=== PATIENT | male | born 1980 | race Caucasian/White ===

== ENCOUNTER 2017-04-04 19:53 | Emergency (ER) | payer OTHER ==
[2017-04-04 20:02] VITALS: BP 140/68; PULSE 111; RESP 18; TEMP 97.9
--- NOTE | 2017-04-04 20:17 | ED ---
General Adult HPI - General Chief complaint: Neck Pain/Injury Stated complaint: Neck/Shoulder Pain Time Seen by Provider: 04/04/17 20:03 Source: patient Mode of arrival: ambulatory Limitations: no limitations - History of Present Illness Initial comments: Residual male patient presents to emergency department today for evaluation of right upper back pain. Patient states that as a constant, throbbing pain, that does relieve with ibuprofen use. Patient states that the area hurts worse when he uses his right arm. Patient states the area is more painful with palpation. Patient denies any chest pain, shortness of breath, nausea, vomiting, sweats, abdominal pain, headaches, dizziness, or weakness. Patient denies any trauma or injury to the site. Patient states he was wrestling with his children may have been an inciting factor, but states that he didn't have any problems after that. Patient states that he woke up with the pain. Patient denies any fever or chills. - Related Data Home Medications Medication Instructions Recorded Confirmed Linagliptin/Metformin HCl 1 tab PO DAILY 01/21/16 04/04/17 [Jentadueto 2.5 mg-1000 mg Tab] ALPRAZolam [Xanax] 0.5 mg PO HS PRN 04/04/17 04/04/17 Previous Rx's Medication Instructions Recorded Lisinopril-Hctz 20-25 mg 1 tab PO DAILY #30 tab 01/24/16 [Zestoretic 20-25] Acetaminophen-Codeine 300-30mg 1 tab PO Q6H PRN #15 tablet 04/04/17 [Tylenol #3] Cyclobenzaprine [Flexeril] 10 mg PO TID #15 tab 04/04/17 Allergies Allergy/AdvReac Type Severity Reaction Status Date / Time No Known Allergies Allergy Verified 04/04/17 20:02 Review of Systems ROS Statement: Those systems with pertinent positive or pertinent negative responses have been documented in the HPI. ROS Other: All systems not noted in ROS Statement are negative. Past Medical History Past Medical History: Diabetes Mellitus Additional Past Medical History / Comment(s): back pain, morbid obesity, hypertension, obstructive sleep apnea History of Any Multi-Drug Resistant Organisms: None Reported Past Surgical History: Tonsillectomy Past Psychological History: No Psychological Hx Reported Smoking Status: Never smoker Past Alcohol Use History: Occasional Past Drug Use History: None Reported General Exam Limitations: no limitations General appearance: alert, in no apparent distress Eye exam: Present: normal appearance, PERRL, EOMI. Absent: scleral icterus, conjunctival injection, periorbital swelling ENT exam: Present: normal exam, mucous membranes moist Neck exam: Present: normal inspection, full ROM. Absent: tenderness, meningismus, lymphadenopathy Respiratory exam: Present: normal lung sounds bilaterally. Absent: respiratory distress, wheezes, rales, rhonchi, stridor Cardiovascular Exam: Present: regular rate, normal rhythm, normal heart sounds. Absent: systolic murmur, diastolic murmur, rubs, gallop, clicks GI/Abdominal exam: Present: soft, normal bowel sounds. Absent: distended, tenderness, guarding, rebound, rigid Extremities exam: Present: normal inspection, full ROM, normal capillary refill , other (Increased pain to the right posterior shoulder with movement of the arm.). Absent: tenderness, pedal edema, joint swelling, calf tenderness Back exam: Present: normal inspection, tenderness (Over the upper trapezius muscle. HEENT reproducible with palpation.), muscle spasm Neurological exam: Present: alert, oriented X3, CN II-XII intact Psychiatric exam: Present: normal affect, normal mood Skin exam: Present: warm, dry, intact, normal color. Absent: rash Course Vital Signs 04/04/17 19:59 Temperature 97.9 F Pulse Rate 111 H Respiratory 18 Rate Blood Pressure 140/68 O2 Sat by Pulse 95 Oximetry Medical Decision Making - Medical Decision Making 36-year-old male patient comes in with complaints of right upper back pain is both reproducible upon palpation, and with movement of the right arm. Patient has been taking ibuprofen which does help the pain somewhat. Patient denies any injury or trauma. No x-rays are performed at this time. Patient will be discharged with prescription for Flexeril and Tylenol 3 with codeine for pain. Patient also injected to perform gentle stretching exercises and apply warm moist heat to the area. Patient instructed to follow up with his primary care physician in one to 2 days for recheck. Patient started to return for any new, worsening, or concerning symptoms. Patient verbalized understanding and agreed to this plan. Disposition Clinical Impression: Back spasm Disposition: HOME SELF-CARE Condition: Good Instructions: Muscle Spasm (ED) Additional Instructions: Use muscle relaxers and pain medication as needed. Apply warm moist heat to the area. Gentle stretching exercises. If symptoms persist or any other problems to primary care physician a 1-2 days. Return for any new, worsening, or concerning symptoms. Prescriptions: Acetaminophen-Codeine 300-30mg [Tylenol #3] 1 tab PO Q6H PRN #15 tablet PRN Reason: Pain Cyclobenzaprine [Flexeril] 10 mg PO TID #15 tab Referrals: Sumit Graves DO [Primary Care Provider] - 1-2 days Time of Disposition: 20:17
== END 2017-04-04 20:28 | disposition home or self-care (01) ==
LOC: EC 19:53
DX: M62.830 Muscle spasm of back (principal); E11.9 Type 2 diabetes mellitus without complications; E66.1 Drug-induced obesity; Z68.35 Body mass index [BMI] 35.0-35.9, adult; Z79.84 Long term (current) use of oral hypoglycemic drugs
CPT/HCPCS: 99283

== ENCOUNTER → 2017-04-24 | Outpatient (CLI) | payer OTHER ==
--- NOTE | 2017-04-25 07:00 | EST ---
DATE OF SERVICE: 04/24/2017 TYPE OF REPORT: Stress test. INDICATION: Tachycardia. BASELINE HEART RATE: 108 BASELINE BLOOD PRESSURE: 145/99 MAXIMUM HEART RATE: 179 MAXIMUM BLOOD PRESSURE: 203/106 85% MPHR: 156 100% MPHR: 184 METS: 10.1 MAX STAGE REACHED: IV TOTAL EXERCISE TIME: 9:27 The test is being done to evaluate cardiac status because of tachycardia. Baseline EKG showed a sinus rhythm and sinus tachycardia. Blood pressure at rest is 145/99 with pulse rate of 108. Patient walked on the Nav protocol for 9 minutes and 27 seconds achieving a maximum heart rate of 179 with a blood pressure of 203/106. EKGs taken during and after the exercise did not reveal any significant changes from baseline. Patient did not experience any chest pain. FINAL IMPRESSION: 1. Negative stress test. 2. Patient did not experience any chest pain. 3. No arrhythmias were detected. 4. Patient's exercise capacity is fair. [facility]
== END | disposition home or self-care (01) ==
LOC: RADNMMAIN 10:43
PROVIDERS: ATTEND Family Medicine
DX: R00.0 Tachycardia, unspecified (principal)
CPT/HCPCS: 93017

== ENCOUNTER → 2018-04-30 | Outpatient (CLI) | payer OTHER ==
--- NOTE | 2018-04-30 20:50 | CONS ---
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 The concern is that the patient has high blood pressure and he is currently on 3 different blood pressure medications, including a combination of lisinopril, metoprolol and Norvasc. On today's evaluation, his blood pressure is under good control. He has occasional soft snoring; no witnessed apneas. No excessive hypersomnia or sleepiness. Lawson score is only 2. He goes to bed between 10 and 11 p.m., wakes up at 5:30 a.m. in the morning. 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 He does not fall asleep while driving. No restlessness in the lower extremities. No issues with chronic pain. No issues with heartburn, shortness of breath or palpitation at bedtime. Otherwise his comorbidities include diabetes and hypertension. PAST MEDICAL HISTORY: 1. Diabetes. 2. Hypertension. 3. Obesity. PAST SURGICAL HISTORY: Appendectomy. OUTPATIENT MEDICATIONS: 1. Lisinopril. 2. Metoprolol. 3. Trulicity. 4. Amlodipine. 5. Jentadueto. SOCIAL HISTORY: Nonsmoker. No history of alcoholism. No history of IV drugs. The patient has 3 foster kids, 7 weeks, 14 months and 3 years old. 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 FAMILY HISTORY: Negative for sleep apnea. REVIEW OF SYSTEMS: Twelve-point review of systems was done. Positive findings are all mentioned above in the history of present illness. No major hypersomnia or fatigue. He is not worried much about his sleep. No anxiety. No depression. No claustrophobia. No panic attacks. No sexual dysfunction. PHYSICAL EXAMINATION: BP is 125/85, pulse 106, respirations 16, temperature 98.3, saturation 95% on room air. Height is 5 feet 5 inches, weight 223. Lawson score is 2. Neck size 17. BMI 36.9. GENERAL APPEARANCE: Calm, comfortable. Head is atraumatic, normocephalic. NECK: Supple. No JVD. No goiter or neck mass. Mallampati class III. LUNGS: Clear to auscultation. HEART: Heart sounds are regular rate and rhythm. Normal S1, S2. No S3, S4. No murmurs. ABDOMEN: Soft, nontender. No organomegaly. EXTREMITIES: No edema. No cyanosis or clubbing. NEUROLOGIC: Alert and oriented x3. There is no focal neurological deficit. IMPRESSION: 1. Questionable obstructive sleep apnea. Overall suspicion is low. 2. Refractory hypertension, currently on 3 different blood pressure medications. 3. Obesity. 4. Diabetes mellitus. PLAN: 1. Encourage weight loss. 2. The patient overall has good sleep hygiene measures. 3. Proceed with a home sleep study, looking for any significant sleep breathing disorder contributing to this patient's hypertension. MMODL / IJN: [id number] /
== END | disposition home or self-care (01) ==
LOC: SLEEP 14:25
PROVIDERS: ATTEND Internal Medicine Critical Care Medicine
DX: I10 Essential (primary) hypertension (principal); E66.9 Obesity, unspecified; E11.9 Type 2 diabetes mellitus without complications; Z68.36 Body mass index [BMI] 36.0-36.9, adult; Z79.899 Other long term (current) drug therapy
CPT/HCPCS: 99211

== ENCOUNTER → 2020-09-14 | Outpatient (CLI) | payer BC ==
--- NOTE | 2020-09-14 12:48 | CONS ---
MOHIT Jimenez is a 39-year-old male patient who is coming in upon the request of his primary care physician to be evaluated and investigated for obstructive sleep apnea. The patient has some elevated blood pressure and he is on 3 different medications to control the BP. The patient on several occasions was noted to have an elevated blood pressure and this obviously raise the concern for obstructive sleep apnea. Note that the patient was morbidly obese and he was referred to me a couple of years ago for an evaluation and his sleep study was not completed at that point in time. Noted over the years he has lost significant amount of weight. Back in 2000, he used to weigh around 350 pounds and with dieting he has dropped his weight down to 216. He is not sure if he is snoring. He claims that he is not. He is not waking up in the middle of night gasping for air or choking sensation. No excessive hypersomnia or sleepiness. 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 in the morning. He has been sleeping on his side. He does not take any naps during the day. He has not been feeling sleepy while driving, never been involved in a motor vehicle accident because of feeling drowsy or sleepy. No sleep paralysis. No hallucinations. No cataplexy. PAST MEDICAL HISTORY: Diabetes, hypertension, obesity. PAST SURGICAL HISTORY: Past surgical history includes appendectomy. DRUG ALLERGIES: None. OUTPATIENT MEDICATIONS: Outpatient medications include lisinopril, metoprolol, Trulicity, Janumet and amlodipine. SOCIAL HISTORY: Nonsmoker. No history of alcoholism. No history of IV drugs. He drinks coffee in variable amounts depending on the day. FAMILY HISTORY: Brother has hypertension. Grandmother has coronary artery disease and heart problems and grandmother had a stroke. Brother had bronchial asthma. Brother had also obstructive sleep apnea. Brother has diabetes mellitus. He has a twin brother. REVIEW OF SYSTEMS: Fourteen-point review of system was done, positive findings are mentioned in history of present illness. PHYSICAL EXAMINATION: VITAL SIGNS: Blood pressure is 154/91, pulse 102, respirations 16, temperature 98.3, saturation 98% on room air. Height is 5 feet 5 inches. Weight is 216, BMI is 35.3. GENERAL APPEARANCE: Calm, comfortable. HEAD: Atraumatic, normocephalic. NECK: Supple. No JVD. No goiter or neck mass. Mallampati class 4. Some micrognathia is also seen. LUNGS: Clear to auscultation. HEART: Sounds are regular rate and rhythm. Normal S1, S2. No S3, S4. No murmurs. ABDOMEN: Soft, nontender. No organomegaly. EXTREMITIES: No edema. No cyanosis or clubbing. IMPRESSION: 1. There is refractory hypertension. Rule out underlying obstructive sleep apnea. 2. History of morbid obesity. He has lost significant amount of weight, current body mass index is down to 35.3. 3. Questionable snoring. No major hypersomnia or sleepiness. [place] score currently is low at 1. 4. Diabetes. 5. Hypertension. 6. Hyperlipidemia. PLAN: 1. Encourage further weight loss. 2. Cut down the salt intake. 3. Continue hypertensive medication. 4. His BP today is mildly elevated despite being on 3 different medications. He may have refractory hypertension. Will rule out obstructive sleep apnea by proceeding with a home sleep study. MMODL / IJN: [id number] /
== END | disposition home or self-care (01) ==
LOC: SLEEP 17:35
PROVIDERS: ATTEND Internal Medicine Critical Care Medicine
DX: R06.83 Snoring (principal); E11.9 Type 2 diabetes mellitus without complications; I10 Essential (primary) hypertension; E78.5 Hyperlipidemia, unspecified; Z86.39 Personal history of other endocrine, nutritional and metabolic disease; Z79.899 Other long term (current) drug therapy
CPT/HCPCS: 99211

== ENCOUNTER 2021-07-20 08:57 | Emergency (ER) | payer BC, OTHER ==
[2021-07-20] MEDS ORDERED: ACETAMINOPHEN TAB 500 MG TAB PO STA (10:03)
[2021-07-20] MEDS ORDERED: BAMLANIVIMAB (EUA) 700 MG, ETESEVIMAB (EUA) 1,400 MG in SODIUM CHLORIDE 0.9% 50 ML IVPB ONE (10:15)
--- NOTE | 2021-07-20 10:19 | ED ---
General Adult HPI - General Chief complaint: Dizziness Stated complaint: Dizziness Time Seen by Provider: 07/20/21 09:24 Source: patient, RN notes reviewed Mode of arrival: ambulatory Limitations: no limitations - History of Present Illness Initial comments: 40-year-old male with a past medical history of diabetes mellitus, morbid obesity, hypertension presents to the emergency room for a chief complaint of not feeling well. Patient states for 2 days he has had cough and congestion. He had a fever starting today and did take 800 mg of Motrin about 2 hours ago. Patient states he notices pain when coughing but denies pain otherwise. Some aches in his back. No shortness of breath. 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 - Related Data Home Medications Medication Instructions Recorded Confirmed Linagliptin/Metformin HCl 1 tab PO DAILY 01/21/16 04/04/17 [Jentadueto 2.5 mg-1000 mg Tab] ALPRAZolam [Xanax] 0.5 mg PO HS PRN 04/04/17 04/04/17 Previous Rx's Medication Instructions Recorded Lisinopril-Hctz 20-25 mg 1 tab PO DAILY #30 tab 01/24/16 [Zestoretic 20-25] Acetaminophen-Codeine 300-30mg 1 tab PO Q6H PRN #15 tablet 04/04/17 [Tylenol #3] Cyclobenzaprine [Flexeril] 10 mg PO TID #15 tab 04/04/17 Allergies Allergy/AdvReac Type Severity Reaction Status Date / Time No Known Allergies Allergy Verified 07/20/21 09:03 Review of Systems ROS Statement: Those systems with pertinent positive or pertinent negative responses have been documented in the HPI. ROS Other: All systems not noted in ROS Statement are negative. Past Medical History Past Medical History: Diabetes Mellitus Additional Past Medical History / Comment(s): back pain, morbid obesity, hypertension, obstructive sleep apnea History of Any Multi-Drug Resistant Organisms: None Reported Past Surgical History: Tonsillectomy Past Psychological History: No Psychological Hx Reported Smoking Status: Never smoker Past Alcohol Use History: Occasional Past Drug Use History: None Reported General Exam Limitations: no limitations General appearance: alert, in no apparent distress Head exam: Present: atraumatic Eye exam: Present: normal appearance, PERRL, EOMI. Absent: scleral icterus, conjunctival injection ENT exam: Present: normal exam, mucous membranes moist Neck exam: Present: normal inspection, full ROM. Absent: tenderness Respiratory exam: Present: normal lung sounds bilaterally. Absent: respiratory distress, wheezes Cardiovascular Exam: Present: regular rate, normal rhythm, normal heart sounds GI/Abdominal exam: Present: soft, normal bowel sounds. Absent: distended, te nderness Course Vital Signs 07/20/21 08:57 Temperature 101.4 F H Pulse Rate 124 H Respiratory 18 Rate Blood Pressure 117/74 O2 Sat by Pulse 95 Oximetry Medical Decision Making - Medical Decision Making pt presents febrile with a temperature of 101.4 and reflexive tachycardia, given Tylenol. Vitals are stable. Patient is nontoxic, well-appearing. However he did test positive for virus. He does wish to have antibodies given after discussing risks versus benefits. Patient will be discharged home to follow up with primary care. Will return here for any worsening symptoms which were discussed in depth with him. - Lab Data Lab Results 07/20/21 Range/Units 09:08 Coronavirus (PCR) Detected A (Not Detectd) Disposition Clinical Impression: COVID-19 virus detected, Fever Disposition: HOME SELF-CARE Condition: Good Instructions (If sedation given, give patient instructions): Coronavirus Disease 2019 (COVID-19) Additional Instructions: Please follow-up with your doctor in one to 2 days. Return to the emergency room for any worsening symptoms. Is patient prescribed a controlled substance at d/c from ED?: No Referrals: Sumit Graves DO [Primary Care Provider] - 1-2 days Time of Disposition: 10:06
[2021-07-20] MEDS ORDERED: SODIUM CHLORIDE 0.9% 50 ML IVPB ONE (10:45)
[2021-07-20 12:32] VITALS: BP 96/68; PULSE 103; RESP 20; TEMP 100.3
== END 2021-07-20 12:32 | disposition home or self-care (01) ==
LOC: EC 08:57
DX: U07.1 COVID-19 (principal); E11.9 Type 2 diabetes mellitus without complications; I10 Essential (primary) hypertension; Z90.89 Acquired absence of other organs
CPT/HCPCS: 99283; 96365; 87635; J3490

== ENCOUNTER 2023-07-31 08:32 | Emergency (ER) | payer OTHER ==
[2023-07-31] MEDS ORDERED: predniSONE 50 MG TAB PO STA (08:51)
[2023-07-31] MEDS ORDERED: ALBUTEROL HFA INHALER INHALATION STA (08:52)
--- NOTE | 2023-07-31 08:59 | ED ---
General Adult HPI - General Chief complaint: Shortness of Breath Stated complaint: SOB coughing Time Seen by Provider: 07/31/23 08:35 Source: patient, RN notes reviewed, old records reviewed Mode of arrival: ambulatory Limitations: no limitations - History of Present Illness Initial comments: This is a 42-year-old male who presents emergency Department stating he has been coughing and wheezing for the last week. Patient states she has not taken his temperature. Patient denies any chest pain. Patient states he gets walking and he starts to cough a lot so is more short of breath. Patient denies any worsening shortness of breath with lying or sitting up. Patient denies any abdominal pain patient denies nausea vomiting. Patient denies lightheadedness or dizziness. - Related Data Home Medications Medication Instructions Recorded Confirmed Atorvastatin [Lipitor] 20 mg PO DAILY 07/20/21 07/20/21 Dapagliflozin Propanediol [Farxiga] 10 mg PO DAILY 07/20/21 07/20/21 Dulaglutide [Trulicity] 3 mg SQ FR 07/20/21 07/20/21 Lisinopril-Hctz 20-25 mg 1 tab PO BID 07/20/21 07/20/21 [Zestoretic 20-25] Metoprolol Succinate (ER) [Toprol 100 mg PO BID 07/20/21 07/20/21 Xl] amLODIPine [Norvasc] 10 mg PO HS 07/20/21 07/20/21 Previous Rx's Medication Instructions Recorded Albuterol Inhaler [Ventolin Hfa 1 - 2 puff INHALATION Q6HR PRN #2 07/31/23 Inhaler] each Azithromycin [Zithromax Tri-Rigoberto (3 500 mg PO DAILY 3 Days #3 tab 07/31/23 tabs)] predniSONE [Deltasone] 40 mg PO DAILY #8 tab 07/31/23 Allergies Allergy/AdvReac Type Severity Reaction Status Date / Time No Known Allergies Allergy Verified 07/31/23 08:41 Review of Systems ROS Statement: Those systems with pertinent positive or pertinent negative responses have been documented in the HPI. ROS Other: All systems not noted in ROS Statement are negative. Past Medical History Past Medical History: Diabetes Mellitus Additional Past Medical History / Comment(s): back pain, morbid obesity, hypertension, obstructive sleep apnea History of Any Multi-Drug Resistant Organisms: None Reported Past Surgical History: Appendectomy, Tonsillectomy Past Psychological History: No Psychological Hx Reported Smoking Status: Never smoker Past Alcohol Use History: Occasional Past Drug Use History: None Reported General Exam - General Exam Comments Initial Comments: GENERAL: Patient is well-developed and well-nourished. Patient is nontoxic and well- hydrated and is in mild distress. ENT: Neck is soft and supple. No significant lymphadenopathy is noted. Oropharynx is clear. Moist mucous membranes. Neck has full range of motion without eliciting any pain. EYES: The sclera were anicteric and conjunctiva were pink and moist. Extraocular movements were intact and pupils were equal round and reactive to light. Eyelids were unremarkable. PULMONARY: Patient has diffuse expiratory wheezing. CARDIOVASCULAR: There is a regular rate and rhythm without any murmurs gallops or rubs. ABDOMEN: Soft and nontender with normal bowel sounds. SKIN: Skin is clear with no lesions or rashes and otherwise unremarkable. NEUROLOGIC: Patient is alert and oriented x3. Cranial nerves II through XII are grossly intact. Motor and sensory are also intact. Normal speech, volume and content. Symmetrical smile. MUSCULOSKELETAL: Normal extremities with adequate strength and full range of motion. LYMPHATICS: No significant lymphadenopathy is noted PSYCHIATRIC: Normal psychiatric evaluation. Limitations: no limitations Course Vital Signs 07/31/23 08:37 Temperature 97.7 F Pulse Rate 97 Respiratory 18 Rate Blood Pressure 184/120 O2 Sat by Pulse 96 Oximetry Medical Decision Making - Medical Decision Making EKG is interpreted by myself. EKG shows a sinus rhythm at 94 bpm [place] interval 203 nitro 600 QTC was 331 QTC is 383. Patient's EKG shows no ST segment elevation or depression Was pt. sent in by a medical professional or institution (, PA, NUCLEAR POWERPLANT MECHANIC HELPER, urgent care, hospital, or [facility]...) When possible be specific @ -No Did you speak to anyone other than the patient for history (EMS, parent, family, police, friend...)? What history was obtained from this source @ -No Did you review nursing and triage notes (agree or disagree)? Why? @ -I reviewed and agree with nursing and triage notes Were old charts reviewed (outside hosp., previous admission, EMS record, old EKG, old radiological studies, urgent care reports/EKG's, [facility] records)? Report findings @ -No old charts were reviewed Differential Diagnosis (chest pain, altered mental status, abdominal pain women, abdominal pain men, vaginal bleeding, weakness, fever, dyspnea, syncope, headache, dizziness, GI bleed, back pain, seizure, CVA, palpatations, mental health, musculoskeletal)? @ -Differential Dyspnea: Coronary syndrome, arrhythmia, tamponade, asthma, COPD, pulmonary embolism, pneumonia, pneumothorax, pulmonary effusion, anaphylaxis, diabetic ketoacidosis, flailed chest, pulmonary contusion, diaphragmatic rupture, anemia, neuromuscular, this is not meant to be an all-inclusive list. EKG interpreted by me (3pts min.). @ -As above X-rays interpreted by me (1pt min.). @ -Chest x-ray was consistent with pneumonitis CT interpreted by me (1pt min.). @ -None done U/S interpreted by me (1pt. min.). @ -None done What testing was considered but not performed or refused? (CT, X-rays, U/S, labs)? Why? @ -None What meds were considered but not given or refused? Why? @ -None Did you discuss the management of the patient with other professionals (professionals i.e. , PA, NUCLEAR POWERPLANT MECHANIC HELPER, lab, RT, psych nurse, social service liaison, insulation blanket maker, teacher, chief analytics officer, case sealer)? Give summary @ -No Was smoking cessation discussed for >3mins.? @ -No Was critical care preformed (if so, how long)? @ -No Were there social determinants of health that impacted care today? How? (Homelessness, low income, unemployed, alcoholism, drug addiction, transportation, low edu. Level, literacy, decrease access to med. care, fdc, rehab)? @ -No Was there de-escalation of care discussed even if they declined (Discuss DNR or withdrawal of care, Hospice)? DNR status @ -No What co-morbidities impacted this encounter? (DM, HTN, Smoking, COPD, CAD, Cancer, CVA, ARF, Chemo, Hep., AIDS, mental health diagnosis, sleep apnea, morbid obesity)? @ -None Was patient admitted / discharged? Hospital course, mention meds given and route, prescriptions, significant lab abnormalities, going to OR and other pertinent info. @ -Received an albuterol treatment via inhaler. Patient also received Rocephin. Patient also received prednisone. Patient's x-ray showed maybe a pneumonitis but because of the patient's wheezing diffusely patient will be placed on an antibiotic steroid and given an inhaler Undiagnosed new problem with uncertain prognosis? @ -No Drug Therapy requiring intensive monitoring for toxicity (Heparin, Nitro, Insulin, Cardizem)? @ -No Were any procedures done? @ -No Diagnosis/symptom? @ -Bronchitis with bronchospasms Acute, or Chronic, or Acute on Chronic? @ -Acute Uncomplicated (without systemic symptoms) or Complicated (systemic symptoms)? @ -Complications Side effects of treatment? @ -No Exacerbation, Progression, or Severe Exacerbation? @ -No Poses a threat to life or bodily function? How? (Chest pain, [place], [place], pneumonia, PE, COPD, DKA, ARF, appy, cholecystitis, CVA, Diverticulitis, Homicidal, Suicidal, threat to staff... and all critical care pts) @ -[No] - Lab Data Lab Results 07/31/23 Range/Units 08:57 Influenza Type A (PCR) Not Detected (Not Detectd) Influenza Type B (PCR) Not Detected (Not Detectd) RSV (PCR) Not Detected (Not Detectd) SARS-CoV-2 (PCR) Not Detected (Not Detectd) Disposition Clinical Impression: Bronchitis with bronchospasm Disposition: HOME SELF-CARE Condition: Good Instructions (If sedation given, give patient instructions): Bronchospasm (ED), Acute Bronchitis (ED) Prescriptions: predniSONE [Deltasone] 40 mg PO DAILY #8 tab Albuterol Inhaler [Ventolin Hfa Inhaler] 1 - 2 puff INHALATION Q6HR PRN #2 each PRN Reason: Difficulty breathing Azithromycin [Zithromax Tri-Rigoberto (3 tabs)] 500 mg PO DAILY 3 Days #3 tab Is patient prescribed a controlled substance at d/c from ED?: No Referrals: Sumit Graves DO [Primary Care Provider] - 1-2 days Time of Disposition: 10:05
[2023-07-31 09:00] VITALS: BP 184/120; PULSE 97; RESP 18; TEMP 97.7
--- NOTE | 2023-07-31 09:25 | XR ---
EXAMINATION TYPE: XR chest 2V DATE OF EXAM: 07/31/2023 COMPARISON: 05/04/2015 TECHNIQUE: PA and lateral views submitted. HISTORY: Shortness of breath FINDINGS: The lungs are clear and there is no pneumothorax, pleural effusion, or focal pneumonia. Heart size normal and no overt failure. Osseous structures demonstrate hypertrophic and degenerative changes of the spine. Somewhat coarsened central interstitium. IMPRESSION: 1. Correlate for bronchitis or interstitial pneumonitis..
[2023-07-31] MEDS ORDERED: cefTRIAXone 1,000 MG VIAL (IM USE) IM STA (09:52)
== END 2023-07-31 10:30 | disposition home or self-care (01) ==
LOC: EC 08:32
DX: J40 Bronchitis, not specified as acute or chronic (principal); E11.9 Type 2 diabetes mellitus without complications; I10 Essential (primary) hypertension; E66.01 Morbid (severe) obesity due to excess calories; Z68.35 Body mass index [BMI] 35.0-35.9, adult; Z79.84 Long term (current) use of oral hypoglycemic drugs; Z79.899 Other long term (current) drug therapy; Z20.822 Contact with and (suspected) exposure to COVID-19
CPT/HCPCS: 94640; 93005; 87636; 71046; 99285; 96372; J0696; J7512

== ENCOUNTER 2024-04-01 16:39 | Emergency (ER) | payer OTHER ==
[2024-04-01 16:45] VITALS: TEMP 97.7
--- NOTE | 2024-04-01 17:10 | ED ---
General Adult HPI - General Chief complaint: Shortness of Breath Stated complaint: SOB Time Seen by Provider: 04/01/24 16:52 Source: patient, RN notes reviewed Mode of arrival: ambulatory Limitations: no limitations - History of Present Illness Initial comments: Is a 43-year-old male with a past medical history of type 2 diabetes who presents emergency department chief complaint of cough, congestion, runny nose and intermittent shortness of breath over the past 2 weeks. Patient states that his symptoms initially improved however they came back and worsened. He has attempted multiple [id number] medications with minimal relief. Denies heart palpitations, dizziness, headedness, recent blood travel, peripheral edema or lower leg pain. Is on multiple antihypertensives and states that he has not taken any of his medications today. Not attempted to take any over the counter cold and flu medications today. - Related Data Home Medications Medication Instructions Recorded Confirmed Atorvastatin [Lipitor] 20 mg PO DAILY 07/20/21 07/20/21 Dapagliflozin Propanediol [Farxiga] 10 mg PO DAILY 07/20/21 07/20/21 Dulaglutide [Trulicity] 3 mg SQ FR 07/20/21 07/20/21 Lisinopril-Hctz 20-25 mg 1 tab PO BID 07/20/21 07/20/21 [Zestoretic 20-25] Metoprolol Succinate (ER) [Toprol 100 mg PO BID 07/20/21 07/20/21 Xl] amLODIPine [Norvasc] 10 mg PO HS 07/20/21 07/20/21 Previous Rx's Medication Instructions Recorded Albuterol Inhaler [Ventolin Hfa 1 - 2 puff INHALATION Q6HR PRN #2 07/31/23 Inhaler] each Azithromycin [Zithromax Tri-Rigoberto (3 500 mg PO DAILY 3 Days #3 tab 07/31/23 tabs)] predniSONE [Deltasone] 40 mg PO DAILY #8 tab 07/31/23 Benzonatate [Tessalon Perles] 100 mg PO TID PRN #15 capsule 04/01/24 Allergies Allergy/AdvReac Type Severity Reaction Status Date / Time No Known Allergies Allergy Verified 07/31/23 08:41 Review of Systems ROS Statement: Those systems with pertinent positive or pertinent negative responses have been documented in the HPI. ROS Other: All systems not noted in ROS Statement are negative. Past Medical History Past Medical History: Diabetes Mellitus, Hypertension Additional Past Medical History / Comment(s): back pain, morbid obesity, hypertension, obstructive sleep apnea History of Any Multi-Drug Resistant Organisms: None Reported Past Surgical History: Appendectomy, Tonsillectomy Past Psychological History: No Psychological Hx Reported Smoking Status: Never smoker Past Alcohol Use History: Occasional Past Drug Use History: None Reported General Exam Limitations: no limitations General appearance: alert, in no apparent distress Head exam: Present: atraumatic, normocephalic, normal inspection Eye exam: Present: normal appearance, PERRL, EOMI. Absent: scleral icterus, conjunctival injection, periorbital swelling ENT exam: Present: normal exam, mucous membranes moist Neck exam: Present: normal inspection. Absent: tenderness, meningismus, lymphadenopathy Respiratory exam: Present: normal lung sounds bilaterally. Absent: respiratory distress, wheezes, rales, rhonchi, stridor Cardiovascular Exam: Present: regular rate, normal rhythm, normal heart sounds. Absent: systolic murmur, diastolic murmur, rubs, gallop, clicks GI/Abdominal exam: Present: soft, normal bowel sounds. Absent: distended, tenderness, guarding, rebound, rigid Extremities exam: Present: normal inspection, full ROM, normal capillary refill. Absent: tenderness, pedal edema, joint swelling, calf tenderness Back exam: Present: normal inspection Neurological exam: Present: alert, oriented X3, CN II-XII intact Psychiatric exam: Present: normal affect, normal mood Skin exam: Present: warm, dry, intact, normal color. Absent: rash Course Vital Signs 04/01/24 04/01/24 16:42 17:42 Temperature 97.7 F Pulse Rate 93 86 Respiratory 16 20 Rate Blood Pressure 236/101 177/91 O2 Sat by Pulse 95 97 Oximetry Medical Decision Making - Medical Decision Making Was pt. sent in by a medical professional or institution (, PA, MANAGER OF PURCHASING, urgent care, hospital, or retirement...) When possible be specific @ -No Did you speak to anyone other than the patient for history (EMS, parent, family, police, friend...)? What history was obtained from this source @ -No Did you review nursing and triage notes (agree or disagree)? Why? @ -I reviewed and agree with nursing and triage notes Were old charts reviewed (outside hosp., previous admission, EMS record, old EKG, old radiological studies, urgent care reports/EKG's, retirement records)? Report findings @ -No old charts were reviewed Differential Diagnosis (chest pain, altered mental status, abdominal pain women, abdominal pain men, vaginal bleeding, weakness, fever, dyspnea, syncope, headache, dizziness, GI bleed, back pain, seizure, CVA, palpatations, mental health, musculoskeletal)? @ -COVID 19, RSV, influenza, pneumonia, acute bronchitis, URI, this list is not all inclusive EKG interpreted by me (3pts min.). @ -None X-rays interpreted by me (1pt min.). @ -chest x-ray no acute cardiopulmonary process or disease CT interpreted by me (1pt min.). @ -None done U/S interpreted by me (1pt. min.). @ -None done What testing was considered but not performed or refused? (CT, X-rays, U/S, labs)? Why? @ -None What meds were considered but not given or refused? Why? @ -None Did you discuss the management of the patient with other professionals (professionals i.e. , PA, MANAGER OF PURCHASING, lab, RT, psych nurse, social worker health services, school bus driver/mechanic, teacher, crime prevention police officer, human services case manager)? Give summary @ -No Was smoking cessation discussed for >3mins.? @ -No Was critical care preformed (if so, how long)? @ -No Were there social determinants of health that impacted care today? How? (Homelessness, low income, unemployed, alcoholism, drug addiction, transportation, low edu. Level, literacy, decrease access to med. care, halfway, rehab)? @ -No Was there de-escalation of care discussed even if they declined (Discuss DNR or withdrawal of care, Hospice)? DNR status @ -No What co-morbidities impacted this encounter? (DM, HTN, Smoking, COPD, CAD, Cancer, CVA, ARF, Chemo, Hep., AIDS, mental health diagnosis, sleep apnea, morbid obesity)? @ -None Was patient admitted / discharged? Hospital course, mention meds given and route, prescriptions, significant lab abnormalities, going to OR and other pertinent info. @ -Discharge. 43-year-old male with congestion, cough. Emanation there are no adventitious sounds auscultated. Patient is resting comfortably on room air. Patient's vitals reveal that he is hypertensive however he states that he has not taken his for prescribed antihypertensive medications today. He is denying symptoms of chest pain, chest pressure, palpitations. He is provided with a dose of his at home clonidine due to pressure of 170s over 90s. X-ray negative for pneumonia. Cepheid is positive for COVID. Patient is provided with a dose of steroids emergency department and sent a prescription for Tessalon Perles to take as needed for cough. Recommend the patient follows up with his primary care provider next week for further evaluation. All questions answered at bedside and strict return parameters discussed with the patient he is verbalized understanding. Discussed with Dr. Dave Undiagnosed new problem with uncertain prognosis? @ -No Drug Therapy requiring intensive monitoring for toxicity (Heparin, Nitro, Insulin, Cardizem)? @ -No Were any procedures done? @ -No Diagnosis/symptom? @ -Cough, congestion, COVID-19 Acute, or Chronic, or Acute on Chronic? @ -Acute Uncomplicated (without systemic symptoms) or Complicated (systemic symptoms)? @ -Uncomplicated Side effects of treatment? @ -No Exacerbation, Progression, or Severe Exacerbation? @ -No Poses a threat to life or bodily function? How? (Chest pain, [place], [place], pneumonia, PE, COPD, DKA, ARF, appy, cholecystitis, CVA, Diverticulitis, Homicidal, Suicidal, threat to staff... and all critical care pts) @ -No - Lab Data Lab Results 04/01/24 Range/Units 17:34 Influenza Type A (PCR) Not Detected (Not Detectd) Influenza Type B (PCR) Not Detected (Not Detectd) RSV (PCR) Not Detected (Not Detectd) SARS-CoV-2 (PCR) Detected A (Not Detectd) Disposition Clinical Impression: Cough, Chest congestion, COVID-19 Disposition: HOME SELF-CARE Condition: Good Instructions (If sedation given, give patient instructions): COVID-19 (Coronavirus Disease 2019) (ED) Prescriptions: Benzonatate [Tessalon Perles] 100 mg PO TID PRN #15 capsule PRN Reason: Cough Is patient prescribed a controlled substance at d/c from ED?: No Referrals: Sumit Graves DO [Primary Care Provider] - 1-2 days Time of Disposition: 18:45
--- NOTE | 2024-04-01 17:55 | XR ---
EXAMINATION TYPE: XR chest 2V DATE OF EXAM: 04/01/2024 COMPARISON: 07/31/2023 HISTORY: Chest pain TECHNIQUE: Frontal and lateral views of the chest are obtained. FINDINGS: There is no focal air space opacity. No evidence for pneumothorax. No pleural effusion. The cardiac silhouette size is within normal limits. The osseous structures are grossly intact. IMPRESSION: 1. No acute cardiopulmonary process.
[2024-04-01] MEDS: cloNIDine HCL 0.1 MG TAB PO STA (18:20)
[2024-04-01] MEDS: methylPREDNISolone SOD SUCCI 125 MG/2 ML VIAL IM ONE (18:48)
[2024-04-01 18:55] VITALS: BP 162/89; PULSE 82; RESP 18
== END 2024-04-01 18:55 | disposition home or self-care (01) ==
LOC: EC 16:39
DX: U07.1 COVID-19 (principal); E66.01 Morbid (severe) obesity due to excess calories; Z68.36 Body mass index [BMI] 36.0-36.9, adult
CPT/HCPCS: 87636; 71046; 99285; 96372; J2919

== ENCOUNTER 2024-08-29 14:30 | Emergency (ER) | payer BC, OTHER ==
[2024-08-29 14:45] VITALS: TEMP 98.4
--- NOTE | 2024-08-29 16:00 | XR ---
EXAMINATION TYPE: XR chest 2V DATE OF EXAM: 08/29/2024 3:53 PM COMPARISON: Chest radiographs from 04/01/2024 CLINICAL INDICATION: Male, 43 years old with history of cough; [facility] TECHNIQUE: XR chest 2V Frontal and lateral views of the chest. FINDINGS: Lungs/Pleura: There is no evidence of pleural effusion, focal consolidation, or pneumothorax. Pulmonary vascularity: Unremarkable. Heart/mediastinum: Cardiomediastinal silhouette is unremarkable. Musculoskeletal: No acute osseous pathology. IMPRESSION: No acute cardiopulmonary disease/process. [facility], , 08/29/2024 3:57 PM
[2024-08-29 17:07] VITALS: BP 160/76; PULSE 92; RESP 16
--- NOTE | 2024-08-29 17:43 | ED ---
General Adult HPI - General Chief complaint: Shortness of Breath Stated complaint: SOB,Congestion Time Seen by Provider: 08/29/24 17:37 Source: patient, RN notes reviewed Mode of arrival: ambulatory Limitations: no limitations - History of Present Illness Initial comments: 43-year-old male with history of asthma presenting for cough for 1 month. Patient reports cough is dry and is flared up when he walks outside into cold weather. Denies nasal congestion, sore throat, fever, chills, weight loss. Denies chest pain or shortness of breath. 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 He is a non-smoker. - Related Data Home Medications Medication Instructions Recorded Confirmed Atorvastatin [Lipitor] 20 mg PO DAILY 07/20/21 07/20/21 Dapagliflozin Propanediol [Farxiga] 10 mg PO DAILY 07/20/21 07/20/21 Dulaglutide [Trulicity] 3 mg SQ FR 07/20/21 07/20/21 Lisinopril-Hctz 20-25 mg 1 tab PO BID 07/20/21 07/20/21 [Zestoretic 20-25] Metoprolol Succinate (ER) [Toprol 100 mg PO BID 07/20/21 07/20/21 Xl] amLODIPine [Norvasc] 10 mg PO HS 07/20/21 07/20/21 Previous Rx's Medication Instructions Recorded Albuterol Inhaler [Ventolin Hfa 1 - 2 puff INHALATION Q6HR PRN #2 07/31/23 Inhaler] each Azithromycin [Zithromax Tri-Rigoberto (3 500 mg PO DAILY 3 Days #3 tab 07/31/23 tabs)] predniSONE [Deltasone] 40 mg PO DAILY #8 tab 07/31/23 Benzonatate [Tessalon Perles] 100 mg PO TID PRN #15 capsule 04/01/24 Albuterol Inhaler [Ventolin Hfa 1 - 2 puff INHALATION Q6H PRN #1 08/29/24 Inhaler] each predniSONE [Deltasone] 40 mg PO DAILY 5 Days #10 tab 08/29/24 Allergies Allergy/AdvReac Type Severity Reaction Status Date / Time No Known Allergies Allergy Verified 07/31/23 08:41 Review of Systems ROS Statement: Those systems with pertinent positive or pertinent negative responses have been documented in the HPI. ROS Other: All systems not noted in ROS Statement are negative. Past Medical History Past Medical History: Diabetes Mellitus, Hypertension Additional Past Medical History / Comment(s): back pain, morbid obesity, hypertension, obstructive sleep apnea History of Any Multi-Drug Resistant Organisms: None Reported Past Surgical History: Appendectomy, Tonsillectomy Past Psychological History: No Psychological Hx Reported Smoking Status: Never smoker Past Alcohol Use History: Occasional Past Drug Use History: None Reported General Exam Limitations: no limitations General appearance: alert, in no apparent distress Head exam: Present: atraumatic, normocephalic, normal inspection Eye exam: Present: normal appearance, PERRL, EOMI. Absent: scleral icterus, conjunctival injection, periorbital swelling ENT exam: Present: normal exam, mucous membranes moist Respiratory exam: Present: normal lung sounds bilaterally. Absent: respiratory distress, wheezes, rales, rhonchi, stridor Cardiovascular Exam: Present: regular rate, normal rhythm, normal heart sounds. Absent: systolic murmur, diastolic murmur, rubs, gallop, clicks Neurological exam: Present: alert, oriented X3 Psychiatric exam: Present: normal affect, normal mood Skin exam: Present: warm, dry, intact, normal color. Absent: rash Course Vital Signs 08/29/24 08/29/24 14:43 17:06 Temperature 98.4 F Pulse Rate 91 92 Respiratory 20 16 Rate Blood Pressure 189/112 160/76 O2 Sat by Pulse 97 96 Oximetry Medical Decision Making - Medical Decision Making Was pt. sent in by a medical professional or institution (, PA, HUMANITIES PROFESSOR, urgent care, hospital, or half-way...) When possible be specific @ -No Did you speak to anyone other than the patient for history (EMS, parent, family, police, friend...)? What history was obtained from this source @ -No Did you review nursing and triage notes (agree or disagree)? Why? @ -I reviewed and agree with nursing and triage notes Were old charts reviewed (outside hosp., previous admission, EMS record, old EKG, old radiological studies, urgent care reports/EKG's, half-way records)? Report findings @ -No old charts were reviewed Differential Diagnosis (chest pain, altered mental status, abdominal pain women, abdominal pain men, vaginal bleeding, weakness, fever, dyspnea, syncope, headache, dizziness, GI bleed, back pain, seizure, CVA, palpatations, mental health, musculoskeletal)? @ -Asthma exacerbation, bronchitis, viral URI, pneumonia EKG interpreted by me (3pts min.). @ -None X-rays interpreted by me (1pt min.). @ -Chest x-ray reveals no acute process CT interpreted by me (1pt min.). @ -None done U/S interpreted by me (1pt. min.). @ -None done What testing was considered but not performed or refused? (CT, X-rays, U/S, labs)? Why? @ -None What meds were considered but not given or refused? Why? @ -None Did you discuss the management of the patient with other professionals (professionals i.e. , PA, HUMANITIES PROFESSOR, lab, RT, psych nurse, social organization professor, gatekeeper, teacher, strategic intelligence officer, case packer)? Give summary @ -No Was smoking cessation discussed for >3mins.? @ -No Was critical care preformed (if so, how long)? @ -No Were there social determinants of health that impacted care today? How? (Homelessness, low income, unemployed, alcoholism, drug addiction, transportation, low edu. Level, literacy, decrease access to med. care, assisted, rehab)? @ -No Was there de-escalation of care discussed even if they declined (Discuss DNR or withdrawal of care, Hospice)? DNR status @ -No What co-morbidities impacted this encounter? (DM, HTN, Smoking, COPD, CAD, Cancer, CVA, ARF, Chemo, Hep., AIDS, mental health diagnosis, sleep apnea, morbi d obesity)? @ -None Was patient admitted / discharged? Hospital course, mention meds given and route, prescriptions, significant lab abnormalities, going to OR and other pertinent info. @ -Discharge. This is a 43-year-old male with history of asthma with cough x 1. Patient is initially hypertensive however reports he has not taken hypertension meds today. Patient is afebrile satting 97% on room air. Lungs are clear to auscultation bilaterally. No sign of respiratory distress. Patient is negative for COVID, influenza, and RSV. Chest x-ray reveals no acute process. Results discussed with patient. Blood pressure decreases upon reevaluation. I believe cough is due to asthma flareup due to occupational toxin exposure and cold weather. Patient was prescribed a short course of steroids and refilled albuterol inhaler to use as needed. Appropriate return precautions and follow-up care discussed. Patient is agreeable to plan. Case was discussed with my ED attending Dr. Trivedi. Undiagnosed new problem with uncertain prognosis? @ -No Drug Therapy requiring intensive monitoring for toxicity (Heparin, Nitro, Insulin, Cardizem)? @ -No Were any procedures done? @ -No Diagnosis/symptom? @ -Asthma Acute, or Chronic, or Acute on Chronic? @ -Acute Uncomplicated (without systemic symptoms) or Complicated (systemic symptoms)? @ -Uncomplicated Side effects of treatment? @ -No Exacerbation, Progression, or Severe Exacerbation? @ -No Poses a threat to life or bodily function? How? (Chest pain, [place], [place], pneumonia, PE, COPD, DKA, ARF, appy, cholecystitis, CVA, Diverticulitis, Homicidal, Suicidal, threat to staff... and all critical care pts) @ -Not at this time - Lab Data Lab Results 08/29/24 Range/Units 15:45 Influenza Type A (PCR) Not Detected (Not Detectd) Influenza Type B (PCR) Not Detected (Not Detectd) RSV (PCR) Not Detected (Not Detectd) SARS-CoV-2 (PCR) Not Detected (Not Detectd) Disposition Clinical Impression: Asthma Disposition: HOME SELF-CARE Condition: Stable Instructions (If sedation given, give patient instructions): Asthma (ED) Additional Instructions: Take prednisone as directed for 5 days. Use albuterol inhaler as needed for shortness of breath/wheezing. Follow-up with your PCP as discussed. Please return to the Emergency Department if symptoms worsen or any other concerns. Prescriptions: predniSONE [Deltasone] 40 mg PO DAILY 5 Days #10 tab Albuterol Inhaler [Ventolin Hfa Inhaler] 1 - 2 puff INHALATION Q6H PRN #1 each PRN Reason: Shortness Of Breath Is patient prescribed a controlled substance at d/c from ED?: No Referrals: Sumit Graves DO [Primary Care Provider] - 1-2 days Time of Disposition: 17:42
== END 2024-08-29 17:51 | disposition home or self-care (01) ==
LOC: EC 14:30
DX: J45.909 Unspecified asthma, uncomplicated (principal); E66.01 Morbid (severe) obesity due to excess calories; Z68.36 Body mass index [BMI] 36.0-36.9, adult
CPT/HCPCS: 71046; 87636; 99285

== ENCOUNTER 2025-01-21 12:33 | Emergency (ER) | payer OTHER, BC ==
[2025-01-21 12:57] VITALS: RESP 18; TEMP 98.1
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
[2025-01-21] MEDS: CYCLOBENZAPRINE 10 MG TAB PO STA (15:07)
[2025-01-21 15:31] VITALS: BP 128/76; PULSE 78
== END 2025-01-21 15:26 | disposition home or self-care (01) ==
LOC: EC 12:33
DX: M54.9 Dorsalgia, unspecified (principal); V43.52XA Car driver injured in collision with other type car in traffic accident, initial encounter
CPT/HCPCS: 70450; 72070; 72125; 99284

== ENCOUNTER → 2025-03-02 | Outpatient (CLI) | payer OTHER ==
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
== END | disposition home or self-care (01) ==
LOC: RADXRMAIN 11:12
PROVIDERS: ATTEND Family Medicine
DX: S46.911D Strain of unspecified muscle, fascia and tendon at shoulder and upper arm level, right arm, subsequent encounter (principal)